=== PATIENT | male | born 1980 | race Caucasian/White ===

== ENCOUNTER 2016-09-10 10:48 | Emergency (ER) | payer OTHER ==
[~2016-09-10] VITALS: Wt 75.0 kg
[2016-09-10] MEDS ORDERED: hydrOXYzine HCL 25 MG TAB PO ONE (12:00)
--- NOTE | 2016-09-10 12:17 | ERD ---
ER Documentation Chief Complaint Date/Time DATE: 09/10/16 TIME: 12:16 Chief Complaint feeling cold and shakey after an anxiety attack yesterday. no pain or sob HPI 36-year-old male with history of anxiety, hyperlipidemia and hypertension comes emergency room with shakiness, and felt like his heart was racing yesterday while he was driving. The patient states that this episode occurred for approximately 15 minutes and resolved on its own. Today he feels "cold and shaky" he denies any trouble breathing. ROS All systems reviewed and are negative except as per history of present illness. Medications Home Meds Active Scripts Hydroxyzine Hcl* (Atarax*) 25 Mg Tab, 25 MG PO Q6H Y for ANXIETY, #15 TAB Prov:SEAN GANN PA-C 09/10/16 Allergies Allergies: Coded Allergies: No Known Allergy (Unverified , 09/10/16) PMhx/Soc History of Surgery: No Anesthesia Reaction: No Hx Neurological Disorder: No Hx Respiratory Disorders: No Hx Cardiac Disorders: No Hx Psychiatric Problems: No Hx Miscellaneous Medical Probl: No Hx Alcohol Use: No Hx Substance Use: No Hx Tobacco Use: No Smoking Status: Never smoker Physical Exam Vitals Vital Signs Date Time Temp Pulse Resp B/P Pulse Ox O2 Delivery O2 Flow Rate FiO2 09/10/16 10:52 98.4 80 20 161/94 98 Physical Exam General: Well-developed, well-nourished. The patient appears in no acute distress. HEENT: Head is normocephalic, atraumatic. No scleral icterus. Pupils are equal , round, and reactive. Oral mucous membranes are moist. No pharyngeal erythema. Neck: Supple. Nontender. Lungs: Clear to auscultation. Normal air movement. Heart: Regular rate and rhythm. S1 and S2 are normal. No murmurs, gallops, or rubs. Abdomen: Soft, nontender, nondistended. Bowel sounds are normoactive. Extremities: No clubbing or cyanosis. Normal pulses. Moving extremities x 4. No weakness. Neurologic: Alert and oriented 3. No focal deficits. Skin: Normal turgor. No rash or lesions. Results 24 hrs Laboratory Tests Test 09/10/16 12:59 Bedside Glucose 91mg/dL Current Medications Medications (Trade) Dose Ordered Sig/Giovanny Route PRN Reason Start Time Stop Time Status Last Admin Dose Admin Hydroxyzine HCl (Atarax) 25 mg ONCE ONCE PO 09/10/16 12:00 09/10/16 12:01 DC 09/10/16 12:00 EKG: Dr. Schilling Rate/Rhythm: Normal Sinus Rhythm rate of 78 QRS, ST, T-waves: No changes consistent w/ acute ischemia Impression: No evidence of ischemia or arrhythmia Procedures/MDM 36-year-old male comes in with shakiness, anxiety symptoms, patient has a history of this and relates that he feels that this is happened in the past before. He did receive an EKG, normal sinus rhythm, Accu-Chek was unremarkable. He will be given a short course of Atarax to be taken, I have asked him to follow-up with his primary care doctor for further evaluation. He does not warrant any emergent psychiatric intervention or hospitalization at this time. Departure Diagnosis: Primary Impression: Anxiety Condition: SEAN Yeh PA-C Sep 10, 2016 12:17
[2016-09-10] MEDS ORDERED: HYDR-842 PO (13:03)
== END 2016-09-10 13:34 | disposition home or self-care (01) ==
LOC: FTE 10:48
DX: F41.9 Anxiety disorder, unspecified (principal); I10 Essential (primary) hypertension
CPT/HCPCS: 82962; 93005